=== PATIENT | male | born 1940 | race Caucasian/White ===

== ENCOUNTER 2017-05-03 14:14 | Emergency (ER) | payer OTHER ==
[~2017-05-03] VITALS: Ht 162.6 cm; Wt 61.3 kg
[~2017-05-03 14:14] MED LIST: OMEP20TA62 PO; PRAV20TA2 PO
[2017-05-03 15:50] VITALS: BP 132/68
[2017-05-03] MEDS ORDERED: UBID100C41 PO (15:53)
[2017-05-03] MEDS ORDERED: ASPI-621 PO (15:53)
[2017-05-03] MEDS ORDERED: MULT-516 PO (15:53)
== END 2017-05-03 16:12 | disposition home or self-care (01) ==
LOC: ED 16:05
DX: J20.9 Acute bronchitis, unspecified (principal); R06.00 Dyspnea, unspecified; K21.9 Gastro-esophageal reflux disease without esophagitis; E78.00 Pure hypercholesterolemia, unspecified
CPT/HCPCS: 71010; 93005; 99284

== ENCOUNTER 2017-07-28 22:33 | Emergency (ER) | payer OTHER, MEDICARE ==
[~2017-07-28] VITALS: Ht 162.6 cm; Wt 62.3 kg
[~2017-07-28 22:33] MED LIST changes: +ASPI-621 PO; +MULT-516 PO; +UBID100C41 PO
[2017-07-28 22:34] VITALS: BP 148/70
== END 2017-07-29 00:38 | disposition home or self-care (01) ==
LOC: ED 07-29 00:36
DX: J20.8 Acute bronchitis due to other specified organisms (principal); K21.9 Gastro-esophageal reflux disease without esophagitis; E78.00 Pure hypercholesterolemia, unspecified
CPT/HCPCS: 71046; 93005; 99284

== ENCOUNTER 2020-11-30 02:07 | Emergency (ER) | payer OTHER, MEDICARE ==
[~2020-11-30] VITALS: Ht 162.6 cm; Wt 58.9 kg
[~2020-11-30 02:07] MED LIST changes: -ASPI-621 PO; +ASPI81TA45 PO
--- NOTE | 2020-11-30 02:20 | NUR ---
break rn;PT. REPORTS "I CAN'T URINATE AND IT'S PAINFUL". REPORTS JUST DRIBBLING AND PAINFUL URINATION.
[2020-11-30 03:31] LABS: MICROSCOPIC INDICATED
--- NOTE | 2020-11-30 04:15 | NUR ---
BLADDER SCANER PERFORMED WITH IT SHOWING 320ML IN BLADDER.
--- NOTE | 2020-11-30 04:29 | NUR ---
PT RESCANED AFTER PT URINATED, PT BLADDER SHOWED 200ML
[2020-11-30 04:42] LABS: BASOPHILS % (AUTO) 1 % (0-1); EOSINOPHILS % (AUTO) 0 % (1-7); LYMPHOCYTES % (AUTO) 11 % (22-44); MD NO; MEAN CORPUSCULAR HEMOGLOBIN 31.9 pg (27.5-34.5); MEAN CORPUSCULAR HGB CONC 33.6 g/dL (33.2-36.2); MEAN PLATELET VOLUME 9.7 fL (7.4-10.4); MONOCYTES % (AUTO) 11 % (2-9); NEUTROPHILS % (AUTO) 77 % (42-75); PLATELET COUNT 183 x10^3/uL (130-400); RED BLOOD COUNT 4.73 x10^6/uL (4.38-5.82); RED CELL DISTRIBUTION WIDTH 13.2 % (9.4-14.8)
[2020-11-30 04:53] LABS: ANION GAP 4 mmol/L (5-15); CALCIUM 8.7 mg/dL (8.5-10.1); CHLORIDE 105 mmol/L (98-107); CREATININE 1.25 mg/dL (0.7-1.3)
[2020-11-30 05:55] VITALS: BP 133/85
== END 2020-11-30 05:57 | disposition home or self-care (01) ==
LOC: ED 05:50
DX: N40.1 Benign prostatic hyperplasia with lower urinary tract symptoms (principal); R33.8 Other retention of urine; E78.00 Pure hypercholesterolemia, unspecified; K21.9 Gastro-esophageal reflux disease without esophagitis; Z90.49 Acquired absence of other specified parts of digestive tract
CPT/HCPCS: 36415; 80048; 81001; 82040; 85025; 99284